=== PATIENT | male | born 1985 | race Caucasian/White ===

== ENCOUNTER 2017-07-11 13:45 | Emergency (ER) | payer SELFPAY ==
[2017-07-11 14:13] VITALS: BP 159/75
--- NOTE | 2017-07-11 14:34 | UC ---
Upper Extremity HPI - HPI Summary HPI Summary: 31 year old male presents with right ring finger foreign body. - History of Current Complaint Chief Complaint: [employer] Stated Complaint: LEFT HAND INJ Time Seen by Provider: 07/11/17 14:32 Hx Obtained From: Patient Onset/Duration: Sudden Onset Severity Initially: Moderate Severity Currently: Moderate Pain Scale Used: 0-10 Numeric - 5 Character: Sharp Aggravating Factor(s): Movement, Lifting, Flexion, Extension - Allergies/Home Medications Allergies/Adverse Reactions: Allergies Allergy/AdvReac Type Severity Reaction Status Date / Time No Known Allergies Allergy Verified 07/11/17 14:08 PMH/Surg Hx/FS Hx/Imm Hx Previously Healthy: Yes - Surgical History Surgical History: None - Social History Alcohol Use: None Substance Use Type: None Smoking Status (MU): Never Smoked Tobacco - Immunization History Most Recent Tetanus Shot: unknown Review of Systems Constitutional: Negative Skin: Other - foreign body right ring finger Eyes: Negative ENT: Negative Respiratory: Negative Cardiovascular: Negative Gastrointestinal: Negative Genitourinary: Negative Motor: Negative Neurovascular: Negative Musculoskeletal: Negative Neurological: Negative Psychological: Negative All Other Systems Reviewed And Are Negative: Yes Physical Exam Triage Information Reviewed: Yes Vital Signs: Initial Vital Signs Temp 37.1 C 07/11/17 14:08 Pulse 90 07/11/17 14:08 Resp 18 07/11/17 14:08 BP 159/75 07/11/17 14:08 Vital Signs Reviewed: Yes Eye Exam: Normal ENT Exam: Normal Dental Exam: Normal Neck exam: Normal Neck: Positive: 1 Respiratory Exam: Normal Cardiovascular Exam: Normal Abdominal Exam: Normal Musculoskeletal Exam: Normal Neurological Exam: Normal Psychological Exam: Normal Skin: Positive: Other - foreign body right ring finger Procedures - Laceration/Wound Repair 1 Location: upper extremity - right ring finger Description: Linear Anesthesia: Local, 1.0% Length, Depth and Shape: < 2.5 cm Betadine Prep?: Yes Laceration/Wound Explored: clean, foreign body removed Closure: Single Layer Suture Type: Prolene - 4.0 Layer Closure?: No Sterile Dressing Applied?: Yes Upper Extremity Course/Dx - Differential Dx/Diagnosis Provider Diagnoses: right ring finger foreign body Discharge - Discharge Plan Condition: Stable Disposition: HOME Prescriptions: Sulfamethox/Trimethoprim DS* [Bactrim DS 800/160 TAB*] 1 tab PO BID #20 tab Patient Education Materials: Soft Tissue Foreign Body (ED) Referrals: Jason Dahl MD [Medical Doctor] -
--- NOTE | 2017-07-11 14:56 | RAD ---
Indication: Foreign body. 3 views of the right fourth digit demonstrates performed body in the volar aspect of the soft tissue at the level of the distal interphalangeal joints of the fourth digit. No fracture is identified. IMPRESSION: Foreign body is notified in the right finger.
[2017-07-11] MEDS ORDERED: Lidocaine 1% MPF* 2 ML VIAL INJ ONE ×2 (15:04→15:05)
[2017-07-11] MEDS ORDERED: Acetaminop/Codeine 30 MG TAB* 1 TAB (300 MG/30 MG) PO ONE (15:06)
[2017-07-11] MEDS ORDERED: Tetan/Diph/Pertus SYR(Tdap)* 0.5 ML SYR(BOOSTRIX) use SYR IM ONE (15:30)
== END 2017-07-11 16:17 | disposition home or self-care (01) ==
LOC: UCCORT 13:45
DX: S60.454A Superficial foreign body of right ring finger, initial encounter (principal); X58.XXXA Exposure to other specified factors, initial encounter; Y93.9 Activity, unspecified; Y92.9 Unspecified place or not applicable; Z23 Encounter for immunization
CPT/HCPCS: 10120; 73140; 90471; 90715; 99202; A9270-GY; G0463